=== PATIENT | female | born 1985 | race Caucasian/White ===

== ENCOUNTER 2016-09-02 11:37 | Inpatient (IN) | payer OTHER ==
[~2016-09-02] VITALS: Ht 157.5 cm; Wt 85.4 kg
[~2016-09-02 11:37] MED LIST: ALPRAZOLAM1 MG PO; HYDROCODON-ACE1 EAC7 PO; MACROBID100 MG PO; NAPROXEN500 MG PO; NOHOMEMEDS; PHENERGAN-CODE120 ML PO; PREDNISONE50 MG PO; PYRIDIUM200 MG PO; TESSALON200 MG PO; TOPIRAMATE25 MG PO; TRAZODONE HCL50 MG PO; TYLENOL EXTRA500 MG PO; ZITHROMAX Z-PA250 MG PO
[2016-09-02 13:00] LABS: HEMATOCRIT 42.2 % (36.0-46.0); MCH 33.1 PG (29.0-34.0); MCHC 33.9 G/DL (30.0-36.0); MCV 97.7 FL (83-99); MEAN PLAT.VOLUME 10.8 uM^3 (9.5-12.4); PLATELET COUNT 307 K/uL (156-360); RBC DIS.WIDTH-CV 12.5 % (11.8-14.6); RBC DIS.WIDTH-SD 45.1 % (39-53); RED BLOOD COUNT 4.32 M/uL (3.80-5.20); WHITE BLOOD COUNT 10.4 K/uL (4.1-10.2)
[2016-09-02 13:30] LABS: CHLORIDE 109 mEq/L (99-109); SODIUM 140 mEq/L (136-147)
[2016-09-02 13:32] LABS: GLUCOSE 90 mg/dL (70-99)
[2016-09-02 13:33] LABS: ANION GAP 9 MEQ/L (2-14)
[2016-09-02 13:35] LABS: SERUM ETHYL ALCOHOL < 10 mg/dL
[2016-09-02 13:36] LABS: GFR ESTIMATE (CALCULATED) > 59 mL/min/
[2016-09-02 13:37] LABS: UREA NITROGEN (BUN) 10 mg/dL (9-23)
[2016-09-02 13:45] LABS: QUANTITATIVE HCG < 4.0 MIU/ML
[2016-09-02 14:03] LABS: ADD MEDTOX COMMENT Y; AMPHETAMINE NEGATIVE (500 ng/mL); BARBITURATES NEGATIVE (200 ng/mL); BENZODIAZEPINES NEGATIVE (150 ng/mL); COCAINE PRESUMPTIVE POSITIVE (150 ng/mL); INTERNAL CONTROLS VALID? YES; METHADONE NEGATIVE (200 ng/mL); METHAMPHETAMINE NEGATIVE (500 ng/mL); OPIATES (MORPHINE) NEGATIVE (100 ng/mL); OXYCODONE NEGATIVE (100 ng/mL); PHENCYCLIDINE NEGATIVE (25 ng/mL); PROPOXYPHENE NEGATIVE (300 ng/mL); THC CANNABINOIDS PRESUMPTIVE POSITIVE (50 ng/mL); TRICYCLIC ANTIDEPRESSANTS NEGATIVE (300 ng/mL)
[2016-09-02 17:53] VITALS: BP 154/75
[2016-09-03 07:57] VITALS: BP 117/66
[2016-09-03 15:40] VITALS: BP 136/69
[2016-09-04 07:42] VITALS: BP 101/55
[2016-09-04 15:06] VITALS: BP 131/79
[2016-09-05 08:06] VITALS: BP 102/59
[2016-09-05] MEDS ORDERED: ESCITALOPRAM OX10 MG PO (13:09)
== END 2016-09-05 14:38 | disposition other institution (70) | DRG 885 ==
LOC: EME 11:37 → 1WEST 16:27 → EDOF 16:27 → 1WEST 17:52
DX: F33.2 Major depressive disorder, recurrent severe without psychotic features (principal); F14.20 Cocaine dependence, uncomplicated; F10.20 Alcohol dependence, uncomplicated; F12.20 Cannabis dependence, uncomplicated; R45.851 Suicidal ideations; F17.200 Nicotine dependence, unspecified, uncomplicated
CPT/HCPCS: 80048; 84702; 84999; 85027; 90839; 94640; 94640 76; 97150 GO; 97165 GO; 99202; 99281; 99285; G0480; Q0177

== ENCOUNTER 2016-10-04 09:23 | Emergency (ER) | payer OTHER ==
[~2016-10-04] VITALS: Ht 157.5 cm; Wt 89.7 kg
[~2016-10-04 09:23] MED LIST changes: +ESCITALOPRAM OX10 MG PO
[2016-10-04] MEDS ORDERED: ZITHROMAX Z-PA250 MG PO (10:50)
[2016-10-04] MEDS ORDERED: ROBITUSSIN AC,T10 ML PO (10:50)
[2016-10-04 11:16] VITALS: BP 138/88
== END 2016-10-04 11:19 | disposition home or self-care (01) ==
LOC: EME 09:23
DX: J20.9 Acute bronchitis, unspecified (principal); F17.200 Nicotine dependence, unspecified, uncomplicated; Z71.6 Tobacco abuse counseling; J02.9 Acute pharyngitis, unspecified; R51 Headache
CPT/HCPCS: 71020; 93005; 99281; 99284

== ENCOUNTER 2017-05-07 07:53 | Observation (INO) | payer OTHER ==
[~2017-05-07] VITALS: Ht 157.5 cm; Wt 95.8 kg
[~2017-05-07 07:53] MED LIST changes: +ROBITUSSIN AC,T10 ML PO
[2017-05-07 09:40] LABS: HEMATOCRIT 38.4 % (36.0-46.0); HEMOGLOBIN 13.2 G/DL (11.9-15.5); MCH 33.8 PG (29.0-34.0); MCHC 34.4 G/DL (30.0-36.0); MCV 98.2 FL (83-99); PLATELET COUNT 299 K/uL (156-360); RBC DIS.WIDTH-CV 12.1 % (11.8-14.6); RBC DIS.WIDTH-SD 43.8 % (39-53); RED BLOOD COUNT 3.91 M/uL (3.80-5.20); WHITE BLOOD COUNT 13.3 K/uL (4.1-10.2)
[2017-05-07 09:49] LABS: ALBUMIN 3.8 g/dL (3.2-4.8); CHLORIDE 109 mEq/L (99-109); POTASSIUM 3.6 mEq/L (3.7-5.4); SODIUM 141 mEq/L (136-147)
[2017-05-07 09:51] LABS: GLUCOSE 100 mg/dL (70-99)
[2017-05-07 09:52] LABS: TOTAL PROTEIN 6.7 g/dL (6.4-8.3)
[2017-05-07 09:53] LABS: TOTAL BILIRUBIN 0.2 mg/dL (0.0-1.0)
[2017-05-07 09:55] LABS: ALKALINE PHOSPHATASE 75 IU/L (3-129); CREATININE 0.8 mg/dL (0.6-1.3); GFR ESTIMATE (CALCULATED) > 59 mL/min/
[2017-05-07 09:56] LABS: UREA NITROGEN (BUN) 17 mg/dL (9-23)
[2017-05-07 09:57] LABS: AST (GOT) 26 IU/L (2-34)
[2017-05-07 09:58] LABS: ALT (GPT) 22 IU/L (3-49)
[2017-05-07 10:06] LABS: QUANTITATIVE HCG < 4.0 MIU/ML
[2017-05-07 10:41] LABS: LIPASE 51 U/L (1.0-51.0)
[2017-05-07 10:50] LABS: AMYLASE 36 IU/L (1-118)
[2017-05-07 10:52] LABS: APPEARANCE CLEAR ((CLEAR)); BILIRUBIN NEGATIVE; BLOOD LARGE; COLOR YELLOW ((YELLOW)); GLUCOSE (STRIP) NEGATIVE; KETONES NEGATIVE; LEUKOCYTES NEGATIVE; NITRITE NEGATIVE; PROTEIN (STRIP) NEGATIVE; SPECIFIC GRAVITY 1.024 (1.000-1.030); UROBILINOGEN 0.2 MG/DL (0.2-1.0)
[2017-05-07 10:59] LABS: BACTERIA 1+ /HPF; CALCIUM OXALATE CRYSTALS 3+ /HPF; EPITHELIAL CELLS 1+ /HPF; MUCUS TRACE /LPF; RED BLOOD CELLS TNTC /HPF (0-5); UCUL ADDED? YES; WHITE BLOOD CELLS 0-5 /HPF (0-5)
[2017-05-07] MEDS ORDERED: TYLENOL PM EX-1 EACH PO (12:24)
[2017-05-07 19:58] VITALS: BP 126/74
[2017-05-08] VITALS: BP 121/68
[2017-05-08 04:07] VITALS: BP 99/54
[2017-05-08 07:30] VITALS: BP 126/59
[2017-05-08] MEDS ORDERED: NORCO 5/3251 TABLET PO (11:55)
[2017-05-08 12:12] VITALS: BP 130/52
== END 2017-05-08 14:03 | disposition home or self-care (01) ==
LOC: EME 07:53 → EDOF 14:08 → 2EAST 14:08 → EDOF 14:08 → ENRESERV 14:19 → 2EAST 19:54 → ENPENDDIS 05-08 → 2EAST 05-08 14:03
PROC: 0FT44ZZ Resection of Gallbladder, Percutaneous Endoscopic Approach (ICD-10-PCS; principal; 2017-05-07)
DX: K80.10 Calculus of gallbladder with chronic cholecystitis without obstruction (principal); J45.909 Unspecified asthma, uncomplicated; F32.9 Major depressive disorder, single episode, unspecified; F17.210 Nicotine dependence, cigarettes, uncomplicated; F14.90 Cocaine use, unspecified, uncomplicated; F12.90 Cannabis use, unspecified, uncomplicated; F10.10 Alcohol abuse, uncomplicated
CPT/HCPCS: 74177; 80053; 81003; 82150; 83690; 84702; 85027; 87086; 88304; 99281; 99283; G0378; J1170; J1885; J2250; J2405; J2543; J3010; J3411; J7030; J7050; J7120

== ENCOUNTER 2017-05-14 17:24 | Emergency (ER) | payer OTHER ==
[~2017-05-14 17:24] MED LIST changes: +NORCO 5/3251 TABLET PO; +TYLENOL PM EX-1 EACH PO
== END 2017-05-14 18:22 | disposition left against medical advice (07) ==
LOC: EME 17:24
DX: R10.9 Unspecified abdominal pain (principal); M25.571 Pain in right ankle and joints of right foot; Z53.21 Procedure and treatment not carried out due to patient leaving prior to being seen by health care provider